=== PATIENT | female | born 1960 | race American Indian/Alaskan Native ===

== ENCOUNTER 2017-03-11 04:54 | Emergency (ER) | payer MEDICARE ==
[2017-03-11 07:33] LABS: Anion Gap 16 mmol/L; BUN/Creatinine Ratio 17; Blood Urea Nitrogen 12 mg/dL (7-17); Calcium 8.9 mg/dL (8.4-10.2); Carbon Dioxide 24 mmol/L (22-30); Chloride 104.8 mmol/L (98-107); Glucose 170 mg/dL (65-100); Sodium 141 mmol/L (137-145)
[2017-03-11 07:41] LABS: Basophils % (Auto) 0.3 % (0.0-1.8); Eosinophils % (Auto) 3.1 % (0.0-4.3); Hematocrit 36.5 % (30.3-42.9); Hemoglobin 12.2 gm/dl (10.1-14.3); Mean Corpuscular HGB Conc 33 % (30-34); Mean Corpuscular Hemoglobin 28 pg (28-32); Mean Corpuscular Volume 85 fl (79-97); Platelet Count 321 K/mm3 (140-440); Red Blood Count 4.29 M/mm3 (3.65-5.03); Red Cell Distribution Width 14.5 % (13.2-15.2)
--- NOTE | 2017-03-11 09:48 | Cat Scan Report ---
CT scan of head without IV contrast: Tree: Headache. Hypertension. Findings: Ventricles are normal in size and midline in location. Focal area of low attenuation in the right basal ganglia suggestive chronic lacunar infarct. No evidence of acute ischemia, hemorrhage or mass. No extra-axial fluid collection. Normal brainstem and cerebellum. Normal sinuses and mastoid air cells. Impression: No acute intracranial abnormality.
[2017-03-11] MEDS ORDERED: NORCO 7.5/325 PO ONE (11:00)
[2017-03-11] MEDS ORDERED: ZOFRAN ODT PO ONE (11:00)
[2017-03-11] MEDS ORDERED: CATAPRES PO ONE (11:00)
--- NOTE | 2017-03-11 14:53 | Emergency Department Report ---
ED General Adult HPI - General Chief complaint: Nosebleed Stated complaint: NOSE BLEED Time Seen by Provider: 03/11/17 10:50 Source: patient Mode of arrival: Stretcher Limitations: No Limitations - History of Present Illness Initial comments: The patient presented to the emergency department after a bout of epistaxis. She states that she passed some clots. There was no trauma or antecedent ENT type symptoms. She has history of hypertension. The time of my encounter with the epistaxis had been seized for probably 2-3 hours. Patient also complained of a frontal headache which she states was typical for her and mild to moderate in intensity. She denied any neurological change difficulty with speech or coordination. She was fully ambulatory. The patient has had a recent adjustment of her blood pressure medicine regimen from 0.1 twice a day of clonidine 2.2 twice a day. She stated she did not take her blood pressure medicine this a.m. -: Gradual Location: head Radiation: non-radiation Severity scale (0 -10): 5 Quality: aching Consistency: intermittent Improves with: none Worsens with: none Associated Symptoms: denies other symptoms (except minimal nausea) Treatments Prior to Arrival: none - Related Data Previous Rx's Medication Instructions Recorded Last Taken Type Butalb/Acetaminophen/Caffeine 1 cap PO Q6HR PRN #14 cap 03/11/17 Unknown Rx [Fioricet 50-300-40 mg CAP] Allergies Allergy/AdvReac Type Severity Reaction Status Date / Time No Known Allergies Allergy Unverified 03/11/17 06:54 ED Review of Systems ROS: Stated complaint: NOSE BLEED Other details as noted in HPI Constitutional: denies: chills, fever Eyes: denies: eye pain, eye discharge, vision change ENT: denies: ear pain, throat pain Respiratory: denies: cough, shortness of breath, wheezing Cardiovascular: denies: chest pain, palpitations Endocrine: no symptoms reported Gastrointestinal: nausea. denies: abdominal pain, diarrhea Genitourinary: denies: urgency, dysuria, discharge Musculoskeletal: denies: back pain, joint swelling, arthralgia Skin: denies: rash, lesions Neurological: headache. denies: weakness, paresthesias Psychiatric: denies: anxiety, depression Hematological/Lymphatic: denies: easy bleeding, easy bruising ED Past Medical Hx - Past Medical History Previous Medical History?: Yes Hx Hypertension: Yes Hx Heart Attack/AMI: Yes Hx Diabetes: Yes Hx Arthritis: Yes (in hand) Additional medical history: Hidraenitis, triple , PVD - Surgical History Hx Open Heart Surgery: Yes Additional Surgical History: bypass - Social History Smoking Status: Never Smoker Substance Use Type: None - Medications Home Medications: Home Medications Medication Instructions Recorded Confirmed Last Taken Type Butalb/Acetaminophen/Caffeine 1 cap PO Q6HR PRN #14 cap 03/11/17 Unknown Rx [Fioricet 50-300-40 mg CAP] ED Physical Exam - General Limitations: No Limitations General appearance: alert, in no apparent distress - Head Head exam: Present: atraumatic, normocephalic - Eye Eye exam: Present: normal appearance, PERRL, EOMI. Absent: scleral icterus - ENT ENT exam: Present: mucous membranes moist, other (no active bleeding nares are patent) - Neck Neck exam: Present: normal inspection - Respiratory Respiratory exam: Present: normal lung sounds bilaterally. Absent: respiratory distress - Cardiovascular Cardiovascular Exam: Present: regular rate, normal rhythm. Absent: systolic murmur, diastolic murmur, rubs, gallop - GI/Abdominal GI/Abdominal exam: Present: soft, normal bowel sounds. Absent: distended, tenderness, guarding, rebound, rigid - Extremities Exam Extremities exam: Present: normal inspection - Back Exam Back exam: Present: normal inspection - Neurological Exam Neurological exam: Present: alert, oriented X3 - Psychiatric Psychiatric exam: Present: normal affect, normal mood - Skin Skin exam: Present: warm, dry, intact, normal color. Absent: rash ED Course Vital Signs 03/11/17 03/11/17 03/11/17 04:59 05:01 05:05 Temperature Pulse Rate Respiratory Rate Blood Pressure 185/85 185/85 Blood Pressure [Right] O2 Sat by Pulse 97 98 99 Oximetry 03/11/17 03/11/17 03/11/17 05:11 05:15 05:21 Temperature Pulse Rate Respiratory Rate Blood Pressure 185/85 185/85 162/75 Blood Pressure [Right] O2 Sat by Pulse 98 98 98 Oximetry 03/11/17 03/11/17 03/11/17 05:25 05:26 05:30 Temperature 97.9 F Pulse Rate 79 Respiratory 18 Rate Blood Pressure 162/75 185/85 175/85 Blood Pressure 185/85 [Right] O2 Sat by Pulse 98 99 98 Oximetry 03/11/17 03/11/17 03/11/17 05:35 05:41 05:45 Temperature Pulse Rate Respiratory Rate Blood Pressure 175/85 185/85 160/77 Blood Pressure [Right] O2 Sat by Pulse 97 98 97 Oximetry 03/11/17 03/11/17 03/11/17 05:52 06:00 06:15 Temperature Pulse Rate Respiratory 18 Rate Blood Pressure 153/74 155/74 Blood Pressure [Right] O2 Sat by Pulse 99 97 97 Oximetry 03/11/17 03/11/17 03/11/17 06:30 06:45 07:00 Temperature Pulse Rate Respiratory Rate Blood Pressure 157/73 150/73 139/78 Blood Pressure [Right] O2 Sat by Pulse 97 97 96 Oximetry 03/11/17 03/11/17 03/11/17 07:15 07:30 07:45 Temperature Pulse Rate Respiratory Rate Blood Pressure 139/78 155/76 125/77 Blood Pressure [Right] O2 Sat by Pulse 98 98 97 Oximetry 03/11/17 03/11/17 03/11/17 08:00 08:15 08:30 Temperature Pulse Rate Respiratory Rate Blood Pressure 171/83 175/84 169/81 Blood Pressure [Right] O2 Sat by Pulse 97 96 98 Oximetry 03/11/17 03/11/17 03/11/17 08:45 09:00 11:25 Temperature Pulse Rate 77 Respiratory Rate Blood Pressure 171/85 164/83 163/93 Blood Pressure [Right] O2 Sat by Pulse 98 97 Oximetry 03/11/17 03/11/17 12:04 13:18 Temperature Pulse Rate 72 67 Respiratory 17 15 Rate Blood Pressure Blood Pressure 173/85 156/79 [Right] O2 Sat by Pulse 99 98 Oximetry - Reevaluation(s) Reevaluation #1: Patient was given her regular dose of clonidine. Her blood pressure remained reasonably stable. She was observed for several hours and had no recurrence of her epistaxis. She was deemed appropriate for outpatient disposition. 03/11/17 14:51 ED Medical Decision Making - Lab Data Result diagrams: 03/11/17 07:02 03/11/17 07:02 Laboratory Results - last 24 hr 03/11/17 03/11/17 07:02 07:02 WBC 6.0 RBC 4.29 Hgb 12.2 Hct 36.5 MCV 85 MCH 28 MCHC 33 RDW 14.5 Plt Count 321 Lymph % (Auto) 45.1 H [place] % (Auto) 5.9 Eos % (Auto) 3.1 Baso % (Auto) 0.3 Lymph # 2.7 [place] # 0.4 Eos # 0.2 Baso # 0.0 Seg Neutrophils % 45.6 Seg Neutrophils # 2.7 Sodium 141 Potassium 4.0 Chloride 104.8 Carbon Dioxide 24 Anion Gap 16 BUN 12 Creatinine 0.7 Estimated GFR > 60 BUN/Creatinine Ratio 17 Glucose 170 H Calcium 8.9 Critical care attestation.: If time is entered above; I have spent that time in minutes in the direct care of this critically ill patient, excluding procedure time. ED Disposition Clinical Impression: Epistaxis, Essential hypertension Cephalalgia Qualifiers: Headache type: unspecified Headache chronicity pattern: acute headache Intractability: not intractable Qualified Code(s): R51 - Headache Disposition: DC-01 TO HOME OR SELFCARE Is pt being admited?: No Does the pt Need Aspirin: No Condition: Stable Instructions: Hypertension (ED), Epistaxis (ED) Additional Instructions: Monitor your blood pressure carefully. Patient to take her blood pressure medicine upon her return home. Return as needed any acute change or worsening. I have given the name of an ENT physician should he continue to have problems. Rx as needed for headache. Prescriptions: Butalb/Acetaminophen/Caffeine [Fioricet 50-300-40 mg CAP] 1 cap PO Q6HR PRN #14 cap PRN Reason: Headache Referrals: GEOVANNA CARROLL MD [Primary Care Provider] - 3-5 Days ROSA ELENA PATEL MD [Staff Physician] - 3-5 Days Time of Disposition: 14:55
[2017-03-11 15:47] VITALS: BP 134/64
== END 2017-03-11 15:47 | disposition home or self-care (01) ==
LOC: ED 04:54
DX: R04.0 Epistaxis (principal); R51 Headache; I10 Essential (primary) hypertension; I25.2 Old myocardial infarction; E11.9 Type 2 diabetes mellitus without complications
CPT/HCPCS: 36415; 70450; 80048; 85025; Q0162